=== PATIENT | male | born 1945 | race Caucasian/White ===

== ENCOUNTER → 2023-11-11 13:44 | Outpatient (REF) | payer MEDICARE, OTHER, SELFPAY | LOC: RAD 13:44 | PROVIDERS: ATTENDING PHYSICIAN Student in an Organized Health Care Education/Training Program | DX: E11.22 Type 2 diabetes mellitus with diabetic chronic kidney disease (principal); R05.2 Subacute cough | CPT/HCPCS: 71046 ==

== ENCOUNTER → 2024-01-06 13:17 | Outpatient (REF) | payer MEDICARE, OTHER, SELFPAY | LOC: MRI 13:17 | PROVIDERS: ATTENDING PHYSICIAN Student in an Organized Health Care Education/Training Program | DX: R41.3 Other amnesia (principal) | CPT/HCPCS: 70551 ==

== ENCOUNTER → 2024-01-20 07:43 | Outpatient (REF) | payer MEDICARE, OTHER, SELFPAY ==
[2024-01-20 11:23] LABS: ALT (SGPT) 29 U/L (0-50); AST (SGOT) 34 U/L (17-59); Albumin 4.3 g/dl (3.5-5.0); Alkaline Phosphatase 54 U/L (38-126); Blood Urea Nitrogen 27 mg/dl (9-20); Calcium 9.7 mg/dl (8.4-10.2); Carbon Dioxide 27 mmol/L (22-30); Chloride 105 mmol/L (98-107); Glucose 188 mg/dl (70-99); Potassium 4.9 mmol/L (3.5-5.1); Sodium 140 mmol/L (135-145); Total Bilirubin 0.6 mg/dl (0.2-1.3); eGFR 56.93
[2024-01-20 11:54] LABS: TSH Reflex To Free T4 2.23 uIU/ml (0.47-4.68)
[2024-01-20 12:06] LABS: Glycohemoglobin (HgbA1c) 7.6 % (4.0-5.6)
[2024-01-20 12:12] LABS: Vitamin B12 775 pg/ml (239-931)
== END ==
LOC: RAD 07:43
PROVIDERS: ATTENDING PHYSICIAN Surgery Vascular Surgery; FAMILY PHYSICIAN Student in an Organized Health Care Education/Training Program
DX: I71.40 Abdominal aortic aneurysm, without rupture, unspecified (principal); I73.9 Peripheral vascular disease, unspecified; E11.9 Type 2 diabetes mellitus without complications; E78.5 Hyperlipidemia, unspecified; Z79.899 Other long term (current) drug therapy
CPT/HCPCS: 36415; 76770; 80053; 82607; 83036; 84443; 93922; 93925

== ENCOUNTER → 2024-04-06 07:46 | Outpatient (REF) | payer MEDICARE, OTHER, SELFPAY ==
[2024-04-06 11:18] LABS: Glycohemoglobin (HgbA1c) 6.9 % (4.0-5.6)
== END ==
LOC: REG 07:46
PROVIDERS: ATTENDING PHYSICIAN Student in an Organized Health Care Education/Training Program
DX: E11.65 Type 2 diabetes mellitus with hyperglycemia (principal)
CPT/HCPCS: 36415; 83036

== ENCOUNTER 2024-05-08 06:25 | Day surgery (SDC) | payer MEDICARE, OTHER, SELFPAY ==
[2024-05-08] VITALS (10 sets, daily range): BP systolic 117–142; BP diastolic 52–88; BMI 25.2
[2024-05-08 09:57] LABS: Glucose - Point of Care 173 mg/dl (70-99)
[2024-05-08] MEDS: NORMOSOL-R 1000 IV (10:08)
[2024-05-08 12:04] LABS: Glucose - Point of Care 161 mg/dl (70-99)
--- NOTE | 2024-05-08 15:08 | SUR.PHASEI ---
patient with known history of VT, AICD, short run of nonsustained VT here - asymptomatic. Dr Skinner and Dr Greer updated and reviewed strip - no new orders or change in care. vss. no pain, alert and oriented - with sleep sat dips to 89% -
patient states he does not wear CPAP anymore. suggested sleeping in recliner with HOB elevated
== END 2024-05-08 15:45 | disposition home or self-care (01) ==
LOC: SDS 06:25
PROVIDERS: ATTENDING PHYSICIAN Specialist
DX: M70.41 Prepatellar bursitis, right knee (principal)
CPT/HCPCS: 27340; 82962

== ENCOUNTER 2024-07-13 07:58 | Outpatient (RCR) | payer MEDICARE, OTHER, SELFPAY | END 2024-07-13 23:59 | disposition home or self-care (01) | LOC: RPT 07:58 | PROVIDERS: ATTENDING PHYSICIAN Specialist; FAMILY PHYSICIAN Student in an Organized Health Care Education/Training Program | DX: M25.561 Pain in right knee (principal); Z73.6 Limitation of activities due to disability | CPT/HCPCS: 97110; 97140; 97161 ==

== ENCOUNTER → 2025-01-04 08:52 | Outpatient (REF) | payer MEDICARE, OTHER, SELFPAY | LOC: RCS 08:52 | PROVIDERS: ATTENDING PHYSICIAN Internal Medicine; FAMILY PHYSICIAN Student in an Organized Health Care Education/Training Program | DX: I25.10 Atherosclerotic heart disease of native coronary artery without angina pectoris (principal); I34.0 Nonrheumatic mitral (valve) insufficiency; I07.1 Rheumatic tricuspid insufficiency | CPT/HCPCS: 93306 ==

== ENCOUNTER → 2025-02-05 07:58 | Outpatient (REF) | payer MEDICARE, OTHER, SELFPAY | LOC: RAD 07:58 | PROVIDERS: ATTENDING PHYSICIAN Surgery Vascular Surgery; FAMILY PHYSICIAN Student in an Organized Health Care Education/Training Program | DX: I71.40 Abdominal aortic aneurysm, without rupture, unspecified (principal); I73.9 Peripheral vascular disease, unspecified | CPT/HCPCS: 76770; 93922; 93925 ==

== ENCOUNTER 2025-03-15 06:16 | Day surgery (SDC) | payer MEDICARE, OTHER, SELFPAY ==
[2025-03-15 10:08] VITALS: BMI 25.5
[2025-03-15 10:10] VITALS: BP 139/78
[2025-03-15 11:57] VITALS: BP 109/67
[2025-03-15 12:10] VITALS: BP 121/79
[2025-03-15 12:30] VITALS: BP 112/80
== END 2025-03-15 11:45 | disposition home or self-care (01) ==
LOC: SDS 06:16
PROVIDERS: ATTENDING PHYSICIAN Internal Medicine
DX: Z12.11 Encounter for screening for malignant neoplasm of colon (principal); K63.5 Polyp of colon; K57.30 Diverticulosis of large intestine without perforation or abscess without bleeding; R19.4 Change in bowel habit; K29.71 Gastritis, unspecified, with bleeding; K29.80 Duodenitis without bleeding; K22.89 Other specified disease of esophagus; K44.9 Diaphragmatic hernia without obstruction or gangrene; K21.9 Gastro-esophageal reflux disease without esophagitis; Q39.9 Congenital malformation of esophagus, unspecified; R13.10 Dysphagia, unspecified
CPT/HCPCS: 45380; 43239; 88305; 88342

== ENCOUNTER → 2025-04-30 08:32 | Outpatient (REF) | payer MEDICARE, OTHER, SELFPAY ==
[2025-04-30 10:03] LABS: Microalb - Urine Creatinine 126.500 mg/dl
[2025-04-30 10:08] LABS: Microalbumin, Random Urine 10.0 mg/dl (0.6-1.7)
[2025-04-30 10:40] LABS: ALT (SGPT) 20 U/L (0-50); AST (SGOT) 22 U/L (17-59); Albumin 4.4 g/dl (3.5-5.0); Alkaline Phosphatase 41 U/L (38-126); Blood Urea Nitrogen 24 mg/dl (9-20); Calcium 9.6 mg/dl (8.4-10.2); Carbon Dioxide 28 mmol/L (22-30); Chloride 106 mmol/L (98-107); Glucose 188 mg/dl (70-99); HDL Cholesterol 56 mg/dl; LDL Cholesterol, Calculated 89 mg/dl; Potassium 4.9 mmol/L (3.5-5.1); Sodium 141 mmol/L (135-145); Total Protein 6.9 g/dl (6.3-8.2); Very Low Density Lipoprotein 17 mg/dl (0-30); eGFR 56.58
[2025-04-30 11:00] LABS: Glycohemoglobin (HgbA1c) 7.2 % (4.0-5.6)
== END ==
LOC: REG 08:32
PROVIDERS: ATTENDING PHYSICIAN Student in an Organized Health Care Education/Training Program
DX: E11.22 Type 2 diabetes mellitus with diabetic chronic kidney disease (principal); I10 Essential (primary) hypertension; E78.00 Pure hypercholesterolemia, unspecified
CPT/HCPCS: 36415; 80053; 80061; 82043; 82570; 83036